=== PATIENT | female | born 1975 | race Caucasian/White ===

== ENCOUNTER 2017-01-10 01:36 | Emergency (ER) | payer BC ==
--- NOTE | ~2017-01-10 | ER ---
PATIENT'S NAME: CAMDEN VALENCIA [facility] AGE: 41 Y [address] ROOM: [place] [address] LOCATION: [facility] ADMIT DATE: 01/10/2017 ER/Outpatient Report DISCHARGE DATE: 01/10/2017 FAMILY PHYSICIAN: Teofilo Garcia MD ATTENDING PHYSICIAN: Tomas Morfin TIME OF ARRIVAL: 0136 hours. TIME SEEN: 0142 hours. IDENTIFICATION: A 41-year-old female. CHIEF COMPLAINT: Head injury. HISTORY OF PRESENT ILLNESS: The patient has been drinking alcohol since noon today. She smells heavily of alcohol and has slurred speech. The patient hit her head on the car door left- side causing a small superficial laceration and upon entering the house she fell onto her knees and struck her left forehead. No loss of consciousness. She is complaining of some slight pain. No other injuries. ALLERGIES: NO KNOWN DRUG ALLERGIES. CURRENT MEDICATIONS: Denies. MEDICAL PROBLEMS: Denies. SOCIAL HISTORY: The patient lives here in [place]. Tobacco use, 1 pack per day. Alcohol use, socially. Drug use, denies. REVIEW OF SYSTEMS: All systems reviewed and negative other than what is noted in the HPI. PHYSICAL EXAMINATION: VITAL SIGNS: Height 5 feet, 6 inches, weight 87.8 kg. Blood pressure 140/92, pulse 91, respirations 18, temp 98.2, and sats 97% on room air. GENERAL: This is a 41-year-old female in no acute distress. PATIENT'S NAME: CAMDEN VALENCIA [facility] AGE: 41 Y [address] ROOM: [place] [address] LOCATION: [facility] ADMIT DATE: 01/10/2017 ER/Outpatient Report DISCHARGE DATE: 01/10/2017 FAMILY PHYSICIAN: Teofilo Garcia MD ATTENDING PHYSICIAN: Tomas Morfin HEENT: Head: Normocephalic. Ears: TMs translucent both ears. Eyes: Pupils equal and reactive to light and accommodation. Extraocular movements intact. Nose: Mucosa pink. No lesions. Mouth: No lesions. Pharynx benign. NECK: Supple. No lymphadenopathy. LUNGS: Clear to auscultation. BACK: No tenderness to palpation of her cervical, thoracic, or lumbar spine. HEART: Regular rate and rhythm. ABDOMEN: Soft, nondistended, nontender. SKIN: [place], warm, and dry. No lesions or rashes noted. NEURO: The patient is alert. She smells heavily of alcohol and has slurred speech. No focal deficit. MUSCULOSKELETAL: The patient has a 2-cm laceration posterior right scalp. No active bleeding. I am not able to pull it apart and she has an abrasion on left frontal scalp. LABORATORY DATA: Urine hCG is negative. Head CT, no acute findings. Cervical spine CT, no acute findings per Radiology. IMPRESSION: 1. Head injury. 2. Scalp laceration, superficial. 3. Alcohol intoxication. PLAN: Head injury precautions, wound care instructions, Tylenol for pain, no alcohol, and follow up with Dr. Garcia next week. Follow up sooner if any problems or concerns and a friend who is with her will be staying with her tonight. TOMAS MORFIN MD CAR/modl /[id number] d: 01/10/17 0412 t: 01/11/17 0334, OUTPATIENT REPORT
== END 2017-01-10 03:10 | disposition disaster alternative care site (69) ==
LOC: GMED 01:36
DX: S01.01XA Laceration without foreign body of scalp, initial encounter (principal); F10.129 Alcohol abuse with intoxication, unspecified; F17.210 Nicotine dependence, cigarettes, uncomplicated; W22.8XXA Striking against or struck by other objects, initial encounter